=== PATIENT | male | born 1960 | race Caucasian/White ===

== ENCOUNTER → 2016-11-28 | Outpatient (CLI) | payer OTHER | LOC: HEART CORB 10:24 | DX: R00.2 Palpitations (principal) ==

== ENCOUNTER → 2021-12-21 | Outpatient (CLI) | payer OTHER | LOC: KOH-I 11-11 14:30 | DX: J32.9 Chronic sinusitis, unspecified (principal); M26.643 Arthritis of bilateral temporomandibular joint; J34.2 Deviated nasal septum | CPT/HCPCS: 70486 ==

== ENCOUNTER → 2022-02-11 | Day surgery (SDC) | payer OTHER ==
[~2022-02-11] MED LIST: ALL DAY ALLERGY10 M2 PO; FISH OIL 1,0001 EAC1 PO; FLECAINIDE ACET50 MG PO; IPRATROPIU0.2 MG/1 M INH; NICOTINE PATCH1 EAC2 TD; TOPROL XL25 MG PO; XYZAL5 MG PO; ZINC50 M1 PO
== END | disposition home or self-care (01) ==
LOC: OR 06:18
DX: J34.3 Hypertrophy of nasal turbinates (principal); F17.210 Nicotine dependence, cigarettes, uncomplicated; Z79.899 Other long term (current) drug therapy
CPT/HCPCS: J0690; J1100; J2405; J2704; J2710; J3010

== ENCOUNTER → 2022-02-25 | Outpatient (CLI) | payer OTHER | LOC: CT 08:00 | DX: D38.0 Neoplasm of uncertain behavior of larynx (principal) | CPT/HCPCS: 36415; 70491; 82565; 84520; Q9967 ==